=== PATIENT | male | born 1945 | race Caucasian/White ===

== ENCOUNTER 2020-11-13 13:53 | Outpatient (REF) | payer MEDICARE, SELFPAY ==
[2020-11-13 14:49] LABS: Anion Gap 13 (12-20); Blood Urea Nitrogen 5 mg/dL (9-16); Calcium 8.4 mg/dL (8.4-10.2); Carbon Dioxide 29 mmol/L (22-29); Chloride 97 mmol/L (96-108); Estimated Glomerular Filt Rate > 60; Glucose Random 97 mg/dL (60-115); Potassium 3.9 mmol/L (3.3-5.1); Sodium 135 mmol/L (135-145)
== END 2020-11-13 13:54 | disposition home or self-care (01) ==
LOC: HO.LNP 13:53
PROVIDERS: Referring Provider Internal Medicine Nephrology; Visit Provider Internal Medicine
DX: E87.1 Hypo-osmolality and hyponatremia (principal); I10 Essential (primary) hypertension; E78.5 Hyperlipidemia, unspecified
CPT/HCPCS: 80048

== ENCOUNTER 2023-01-22 14:40 | Outpatient (REF) | payer MEDICARE, SELFPAY ==
[2023-01-22 18:54] LABS: Appearance Urine Turbid; Color Urine Yellow; Glucose Urine UA Negative (Negative); Leukocyte Esterase Urine Large (3+) (Negative); Nitrite Urine Positive (Negative); UMIC TRIGGER UACC YES; Urine Blood Large (3+) (Negative); Urine Ketones Negative (Negative); Urine Protein 30 (1+) mg/dL (Neg-Trace)
[2023-01-22 19:06] LABS: Bacteria Urine 4+ (None Seen); RBC Urine >20 /HPF (0-2); Squamous Epithelial Cell Urine 0-2 /HPF (0-2); UACC Culture Trigger YES; WBC Urine >50 /HPF (0-5)
== END 2023-01-22 14:41 | disposition home or self-care (01) ==
LOC: HO.HVNA 14:40
PROVIDERS: PCP Internal Medicine; Visit Provider Internal Medicine
DX: R30.0 Dysuria (principal)
CPT/HCPCS: 81001; 87086; 87088; 87186

== ENCOUNTER 2023-06-26 13:06 | Outpatient (RCR) | payer MEDICARE, OTHER, SELFPAY | END 2024-03-19 10:06 | disposition short-term general hospital (02) | LOC: HO.WCC 13:06 | PROVIDERS: PCP Internal Medicine; Referring Provider Internal Medicine; Visit Provider Surgery | DX: L89.223 Pressure ulcer of left hip, stage 3 (principal); L89.213 Pressure ulcer of right hip, stage 3; S31.000D Unspecified open wound of lower back and pelvis without penetration into retroperitoneum, subsequent encounter; R60.9 Edema, unspecified; G82.54 Quadriplegia, C5-C7 incomplete; Z79.891 Long term (current) use of opiate analgesic; Z79.899 Other long term (current) drug therapy; Z87.891 Personal history of nicotine dependence; Z99.3 Dependence on wheelchair | CPT/HCPCS: 11042; 15271; 87070; 87073; 87205; 97597; 97602; 99212; 99213; Q4187 ==

== ENCOUNTER 2023-12-09 09:30 | Outpatient (REF) | payer MEDICARE, OTHER, SELFPAY ==
[2023-12-09 13:52] LABS: Appearance Urine Turbid; Glucose Urine UA Negative (Negative); Leukocyte Esterase Urine Large (3+) (Negative); Nitrite Urine Positive (Negative); PH 7.5 (5.0-9.0); Specific Gravity - Urine <= 1.005 (1.005-1.025); UMIC TRIGGER UA YES; Urine Blood Large (3+) (Negative); Urine Ketones Negative (Negative); Urine Protein 30 (1+) mg/dL (Neg-Trace)
[2023-12-09 13:54] LABS: Color Urine Yellow
[2023-12-09 13:58] LABS: Bacteria Urine 4+ (None Seen); Other Crystals Urine Present; RBC Urine >20 /HPF (0-2); WBC Urine >50 /HPF (0-5)
== END 2023-12-09 09:31 | disposition home or self-care (01) ==
LOC: HO.HVNA 09:30
PROVIDERS: PCP Internal Medicine; Visit Provider Internal Medicine
DX: N39.0 Urinary tract infection, site not specified (principal)
CPT/HCPCS: 81001; 87086

== ENCOUNTER 2024-06-03 12:27 | Outpatient (REF) | payer MEDICARE, OTHER, SELFPAY ==
[2024-06-03 12:31] LABS: MANUAL DIFF FLAG NO
[2024-06-03 12:37] LABS: Basophils Absolute Auto 0.1 X10*3/uL (0.0-0.2); Basophils Percent Auto 0.6 % (0-2); Eosinophils Absolute Auto 0.5 X10*3/uL (0.0-0.4); Eosinophils Percent Auto 6.2 % (0-4); Hematocrit 28.5 % (42.0-52.0); Hemoglobin 8.8 g/dl (14.0-18.0); Imm Gran Abs Auto 0.09 X10*3/uL (0.00-0.03); Imm Gran Pct Auto 1.1 % (0.0-0.4); Lymphocytes Absolute Auto 1.6 X10*3/uL (1.2-4.9); Lymphocytes Percent Auto 18.2 % (20-40); Mean Corpuscular HGB Conc 30.9 g/dl (31.0-36.0); Mean Corpuscular Hemoglobin 26.7 pg (27.0-33.0); Mean Corpuscular Volume 86.6 fL (80.0-98.0); Mean Platelet Volume 8.7 fL (9.4-12.4); Neutrophils Absolute Auto 5.3 x10*3/uL (2.0-8.3); Neutrophils Percent Auto 61.9 % (45-73); Platelet Count 233 X10*3/uL (160-400); Red Blood Count 3.29 X10*6/uL (4.60-5.80); Red Cell Distribution Width 18.5 % (11.0-16.0); White Blood Count 8.5 X10*3/uL (4.8-10.8)
[2024-06-03 13:17] LABS: Anion Gap 14 (12-20); Blood Urea Nitrogen 8 mg/dL (9-16); Calcium 8.9 mg/dL (8.4-10.2); Carbon Dioxide 31 mmol/L (22-29); Chloride 92 mmol/L (96-108); Estimated Glomerular Filt Rate > 60; Glucose Fasting 108 mg/dL (60-99); Potassium 3.8 mmol/L (3.3-5.1); Sodium 133 mmol/L (135-145)
[2024-06-03 13:23] LABS: Vancomycin Trough 12.7 mcg/mL (10.0-20.0)
== END 2024-06-03 12:28 | disposition home or self-care (01) ==
LOC: HO.HVNA 12:27
PROVIDERS: Visit Provider Internal Medicine Infectious Disease
DX: R78.81 Bacteremia (principal); Z79.899 Other long term (current) drug therapy
CPT/HCPCS: 36415; 80048; 80202; 85025